=== PATIENT | male | born 1950 | race Caucasian/White ===

== ENCOUNTER 2017-02-01 11:10 | Inpatient (IN) | payer MEDICARE, OTHER ==
[2017-02-01] MEDS ORDERED: SODIUM CHLORIDE 0.9% 1,000 ML IV STA (11:23)
[2017-02-01] MEDS ORDERED: RX INFO: IV CONTRAST WAS GIVEN 1 EACH MISC MISCELLANE PRN (11:23)
--- NOTE | 2017-02-01 11:30 | ED ---
General Adult HPI - General Chief complaint: Neuro Symptoms/Deficit Stated complaint: Poss CVA Has Hx Time Seen by Provider: 02/01/17 11:16 Source: patient, family, RN notes reviewed Mode of arrival: wheelchair Limitations: altered mental status, physical limitation - History of Present Illness Initial comments: Patient is a pleasant 66-year-old male presenting to the emergency department with speech problems. Onset is not known. saw the patient around an hour ago with symptoms. Last known well was around 1 or 1:30 AM when he went to bed. Patient has expressive and receptive aphasia. Patient has difficulty understanding language and following commands however is able to understand and follows some. Patient also has some difficulty with garbled speech and inappropriate words. states left facial and left arm weakness are chronic from stroke 1 year ago. - Related Data Home Medications Medication Instructions Recorded Confirmed Verapamil HCl [Verapamil ER] 240 mg PO DAILY 09/02/15 02/01/17 glyBURIDE [Glyburide] 2.5 mg PO DAILY 09/02/15 02/01/17 Benazepril HCl 20 mg PO HS 02/01/17 02/01/17 Clopidogrel [Plavix] 75 mg PO HS 02/01/17 02/01/17 Donepezil [Aricept] 5 mg PO HS 02/01/17 02/01/17 HYDROcodone/APAP 7.5-325MG [[place] 1 tab PO BID PRN 02/01/17 02/01/17 7.5-325] Naproxen Sodium [Aleve] 440 mg PO DAILY PRN 02/01/17 02/01/17 metFORMIN HCL [Glucophage] 1,000 mg PO BID 02/01/17 02/01/17 Previous Rx's Medication Instructions Recorded Atorvastatin [Lipitor] 40 mg PO DAILY #30 tab 09/05/15 Allergies Allergy/AdvReac Type Severity Reaction Status Date / Time No Known Allergies Allergy Verified 02/01/17 12:06 Review of Systems ROS Statement: Those systems with pertinent positive or pertinent negative responses have been documented in the HPI. ROS Other: All systems not noted in ROS Statement are negative. Constitutional: Denies: fever Eyes: Denies: eye pain ENT: Denies: ear pain Respiratory: Denies: cough Cardiovascular: Denies: chest pain Endocrine: Denies: fatigue Gastrointestinal: Denies: abdominal pain Genitourinary: Denies: dysuria Musculoskeletal: Denies: back pain Skin: Denies: rash Neurological: Reports: weakness (Chronic) Past Medical History Past Medical History: Chest Pain / Angina, CVA/TIA, Diabetes Mellitus, Hyperlipidemia, Hypertension, Myocardial Infarction ([place]), Myocardial Infarction (non Q-wave), Prostate Disorder Additional Past Medical History / Comment(s): POLYPS, GOUT, STATED"I WEAR A BRACE ON LT FOOT D/T TENDON PROBLEM" 09-02-15 [address]OKE LT SIDE AFFECTED. Last Myocardial Infarction Date:: 1998? History of Any Multi-Drug Resistant Organisms: None Reported Past Surgical History: Adenoidectomy, Heart Catheterization, Tonsillectomy Additional Past Surgical History / Comment(s): COLONOSCOPY/POLYPECTOMY, BRODY CATARACTS-LENS IMPLANTS. Past Anesthesia/Blood Transfusion Reactions: No Reported Reaction Past Psychological History: No Psychological Hx Reported Smoking Status: Former smoker Past Alcohol Use History: None Reported Past Drug Use History: None Reported - Past Family History Mother Family Medical History: Diabetes Mellitus Father Additional Family Medical History / Comment(s): PARKINSONS General Exam Limitations: altered mental status, physical limitation General appearance: alert, in no apparent distress Head exam: Present: atraumatic Eye exam: Present: normal appearance, PERRL, EOMI. Absent: nystagmus ENT exam: Present: normal oropharynx Neck exam: Present: normal inspection Respiratory exam: Present: normal lung sounds bilaterally Cardiovascular Exam: Present: regular rate, normal rhythm GI/Abdominal exam: Present: soft. Absent: tenderness Extremities exam: Present: normal inspection Neurological exam: Present: alert, CN II-XII intact (Except for left facial droop) Expanded Neurological exam: Present: protecting the airway, other (Sensory exam is limited. states left facial droop is chronic and unchanged as well as left arm weakness.) Speech: Present: receptive aphasia, expressive aphasia Cranial nerves: EOM's Intact: Normal Sensory exam: Upper Extremity Light Touch: Normal, Lower Extremity Light Touch: Normal Motor strength exam: RUE: 5, LUE: 3, RLE: 5, LLE: 5 Eye Response: (4) open spontaneously Motor Response: (6) obeys commands Verbal Response: (3) inappropriate words Psychiatric exam: Present: normal affect, normal mood Skin exam: Present: normal color Course Vital Signs 02/01/17 02/01/17 02/01/17 11:12 11:20 11:35 Temperature 98.0 F Pulse Rate 62 Pulse Rate [ 64 60 Life Specialist ] Respiratory 20 18 18 Rate Blood Pressure 145/76 Blood Pressure 166/88 166/94 [Right Arm] O2 Sat by Pulse 99 98 98 Oximetry 02/01/17 02/01/17 02/01/17 11:50 12:05 12:20 Temperature Pulse Rate 58 L Pulse Rate [ 64 60 Life Specialist ] Respiratory 18 18 18 Rate Blood Pressure 158/89 Blood Pressure 142/91 143/84 [Right Arm] O2 Sat by Pulse 98 98 98 Oximetry - Reevaluation(s) Reevaluation #1: 02/01/17 11:25 Patient has a history of previous stroke with known left facial and left upper arm weakness. Patient is not a candidate for TPA secondary to last known well approximate 10 hours ago. states patient's brother after receiving TPA and would not want this anyhow. EKG Findings - EKG Comments: EKG Findings:: Normal sinus rhythm 60. MA 146. QRS 92. QT 446. QTc 446. Normal axis. Normal QRS. No acute ST change. Medical Decision Making - Medical Decision Making Patient was reevaluated and unchanged. Case was again discussed with Dr. Castano who does not feel emergent intervention is necessary. He does want MRI and neurology consult. Patient and family were updated. Case was discussed with practitioner Radha, who will admit for Dr. jauregui, covering for Dr. Sainz. - Lab Data Result diagrams: 02/01/17 11:32 02/01/17 11:32 Lab Results 02/01/17 02/01/17 02/01/17 Range/Units 11:25 11:32 11:32 WBC 8.8 (3.8-10.6) k/uL RBC 4.38 (4.30-5.90) m/uL Hgb 13.1 (13.0-17.5) gm/dL Hct 38.6 L (39.0-53.0) % MCV 88.2 (80.0-100.0) fL MCH 30.0 (25.0-35.0) pg MCHC 34.0 (31.0-37.0) g/dL RDW 14.2 (11.5-15.5) % Plt Count 242 (150-450) k/uL Neutrophils % 67 % Lymphocytes % 22 % Monocytes % 5 % Eosinophils % 5 % Basophils % 0 % Neutrophils # 5.9 (1.3-7.7) k/uL Lymphocytes # 1.9 (1.0-4.8) k/uL Monocytes # 0.5 (0-1.0) k/uL Eosinophils # 0.5 (0-0.7) k/uL Basophils # 0.0 (0-0.2) k/uL PT (9.0-12.0) sec INR (<1.2) APTT (22.0-30.0) sec Sodium (137-145) mmol/L Potassium (3.5-5.1) mmol/L Chloride (98-107) mmol/L Carbon Dioxide (22-30) mmol/L Anion Gap mmol/L BUN (9-20) mg/dL Creatinine (0.66-1.25) mg/dL Est GFR (MDRD) Af Amer (>60 ml/min/1.73 sqM) Est GFR (MDRD) Non-Af (>60 ml/min/1.73 sqM) Glucose (74-99) mg/dL POC Glucose (mg/dL) 142 H (75-99) mg/dL POC Glu Wellness Program Manager ID Bowling, Laury Calcium (8.4-10.2) mg/dL Total Bilirubin (0.2-1.3) mg/dL AST (17-59) U/L ALT (21-72) U/L Alkaline Phosphatase (38-126) U/L Total Creatine Kinase 148 (55-170) U/L CK-MB (CK-2) 2.5 H* (0.0-2.4) ng/mL CK-MB (CK-2) Rel Index 1.7 Troponin I 0.056 H* (0.000-0.034) ng/mL Total Protein (6.3-8.2) g/dL Albumin (3.5-5.0) g/dL 02/01/17 02/01/17 Range/Units 11:32 11:32 WBC (3.8-10.6) k/uL RBC (4.30-5.90) m/uL Hgb (13.0-17.5) gm/dL Hct (39.0-53.0) % MCV (80.0-100.0) fL MCH (25.0-35.0) pg MCHC (31.0-37.0) g/dL RDW (11.5-15.5) % Plt Count (150-450) k/uL Neutrophils % % Lymphocytes % % Monocytes % % Eosinophils % % Basophils % % Neutrophils # (1.3-7.7) k/uL Lymphocytes # (1.0-4.8) k/uL Monocytes # (0-1.0) k/uL Eosinophils # (0-0.7) k/uL Basophils # (0-0.2) k/uL PT 10.4 (9.0-12.0) sec INR 1.0 (<1.2) APTT 24.7 (22.0-30.0) sec Sodium 142 (137-145) mmol/L Potassium 4.4 (3.5-5.1) mmol/L Chloride 107 (98-107) mmol/L Carbon Dioxide 26 (22-30) mmol/L Anion Gap 9 mmol/L BUN 19 (9-20) mg/dL Creatinine 1.45 H (0.66-1.25) mg/dL Est GFR (MDRD) Af Amer 59 (>60 ml/min/1.73 sqM) Est GFR (MDRD) Non-Af 48 (>60 ml/min/1.73 sqM) Glucose 147 H (74-99) mg/dL POC Glucose (mg/dL) (75-99) mg/dL POC Glu Wellness Program Manager ID Calcium 9.3 (8.4-10.2) mg/dL Total Bilirubin 0.8 (0.2-1.3) mg/dL AST 26 (17-59) U/L ALT 32 (21-72) U/L Alkaline Phosphatase 144 H (38-126) U/L Total Creatine Kinase (55-170) U/L CK-MB (CK-2) (0.0-2.4) ng/mL CK-MB (CK-2) Rel Index Troponin I (0.000-0.034) ng/mL Total Protein 7.0 (6.3-8.2) g/dL Albumin 4.2 (3.5-5.0) g/dL - Radiology Data Radiology results: report reviewed (CT angiogram of the brain and neck shows persistent occluded right vertebral artery distally. Purse persistent significant stenosis right internal carotid artery.), image reviewed (Rest x- ray shows no acute process. Computed tomography scan of the brain shows old infarct, no acute process.) Disposition Clinical Impression: Cerebrovascular accident Disposition: ADMITTED IP TO THIS HOSP Referrals: Miroslava Sainz DO [Primary Care Provider] - 1-2 days Decision Time: 12:58
[2017-02-01 11:40] LABS: Glucose,Whole Blood 142 mg/dL (75-99)
[2017-02-01 11:46] LABS: Basophils % (A) 0 %; CH 31.1; CHCM 35.4; Eosinophils # (A) 0.5 k/uL (0-0.7); Eosinophils % (A) 5 %; HCT 38.6 % (39.0-53.0); HDW 2.58; HGB 13.1 gm/dL (13.0-17.5); Luc # (Auto) 0.09; Luc % (Auto) 1; Lymphocytes # (A) 1.9 k/uL (1.0-4.8); Lymphocytes % (A) 22 %; MCV 88.2 fL (80.0-100.0); Mean Platelet Volume 7.2; Monocytes # (A) 0.5 k/uL (0-1.0); Monocytes % (A) 5 %; Neutrophils # (A) 5.9 k/uL (1.3-7.7); Neutrophils % (A) 67 %; RBC 4.38 m/uL (4.30-5.90); RDW 14.2 % (11.5-15.5); WBC 8.8 k/uL (3.8-10.6); WBC (Perox) 8.96
[2017-02-01 11:51] LABS: Partial Thromboplastin Time 24.7 sec (22.0-30.0); Prothrombin Time 10.4 sec (9.0-12.0)
[2017-02-01 11:53] LABS: Calcium 9.3 mg/dL (8.4-10.2); Potassium 4.4 mmol/L (3.5-5.1); Total Bilirubin 0.8 mg/dL (0.2-1.3)
--- NOTE | 2017-02-01 12:18 | CT ---
EXAMINATION TYPE: CT brain wo con DATE OF EXAM: 02/01/2017 HISTORY: altered mental status. CT DLP: 1064.30 mGycm. Automated Exposure Control for Dose Reduction was Utilized. TECHNIQUE: CT scan of the head is performed without contrast. COMPARISON: CT brain September 08, 2015. MRI brain September 02, 2015. FINDINGS: There is no acute intracranial hemorrhage or midline shift identified. There is diffuse v entricular and sulcal prominence consistent with diffuse age-related cerebral atrophy. There is low- attenuation in the periventricular white matter consistent with chronic small vessel ischemic change. Areas of encephalomalacia right frontal region there are axial image 27 and posterior superior right frontal region near image 35 extending through 42 are redemonstrated. Ex vacuo dilatation of right-s ided ventricular system is redemonstrated. The globes are intact and the visualized sinuses are clear . Patchy soft tissue density bilateral external auditory canals is felt to reflect cerumen. IMPRESSION: No acute intracranial hemorrhage or midline shift. There is mild to moderate diffuse ag e-related cerebral atrophy and chronic small vessel ischemic change as well as old right-sided infarc t all redemonstrated. No significant change from prior CT is seen. If clinical concern for acute stroke persists further investigation with MRI study may be warranted.
--- NOTE | 2017-02-01 12:20 | XR ---
EXAMINATION TYPE: XR chest 2V DATE OF EXAM: 02/01/2017 COMPARISON: 09/06/2015 HISTORY: 66-year-old male confusion, altered mental status TECHNIQUE: Frontal and lateral views FINDINGS: The heart is upper limits of normal in size. Aorta and pulmonary vasculature within normal limits. Mi ld interstitial prominence as a chronic appearance. No consolidation or pleural effusion. IMPRESSION: No acute cardiopulmonary process.
[2017-02-01 12:26] LABS: Creatine Kinase MB 2.5 ng/mL (0.0-2.4); Troponin I 0.056 ng/mL (0.000-0.034)
--- NOTE | 2017-02-01 12:58 | CT ---
EXAMINATION TYPE: CT angio head neck DATE OF EXAM: 02/01/2017 HISTORY: Neuro Deficits. altered mental status. COMPARISON: CTA and MRA head and neck September 02, 2015 CT DLP: 395.90 mGycm. Automated Exposure Control for Dose Reduction was Utilized. TECHNIQUE: CTA scan of the neck is performed with IV Contrast, patient injected with 65 mL of Omnipa que 350, axial images are obtained, coronal and sagittal reformatted images are reviewed. Three-D rec onstructed images are created on an independent workstation and reviewed. FINDINGS: Carotid/Vascular Structures: There is mild eccentric noncalcified plaque in aortic arch. There is nor mal three-vessel origin from aortic arch. The right common carotid artery shows normal origin from th e right brachiocephalic artery. There is redemonstration of severe noncalcified eccentric plaque at r ight carotid bulb seen best on sagittal image 15 along posterior margin causing severe stenosis at or igin of right internal carotid artery similar to prior MRI. I get residual luminal diameter of 4.5 x 1.9 mm anteriorly on raw data images. Computer says there is narrowing up to 2.2 mm in diameter. Chelo ve some poststenotic dilatation is seen. [place] lumen reexpands to 7.6 x 7.0 mm. Remainder of right i nternal carotid artery shows no significant plaque or stenosis. Right external carotid artery is roach nt without significant plaque or stenosis. Left common carotid artery shows moderate mixed plaque at carotid bulb extending into proximal spring intern al carotid artery. No significant stenosis is felt present. Remainder left internal carotid artery sh ows no significant plaque or stenosis. There is patent external carotid artery without significant pl aque or stenosis. There is patent dominant left vertebral artery. Right vertebral artery appears occluded or small sonia lilly throughout its mid to distal course. Basilar artery is slightly tortuous similar to prior. No ane urysmal change or new significant stenosis is seen. Other: There is redemonstration of areas of encephalomalacia right frontal lobe MCA distribution. Fairly moderate spurring and disc space narrowing C3-C4, C5-C6, and C6-C7 levels is redemonstrated. IMPRESSION: 1. Persistent occluded nondominant right vertebral artery distally redemonstrated. 2. Persistent significant stenosis right internal carotid artery, I calculated degree of stenosis or narrowing 85% as detailed above on MRA was felt greater than 90%. 3. No significant new focal stenosis or aneurysmal change is identified.
[2017-02-01] MEDS ORDERED: SODIUM CHLORIDE 0.9% 1,000 ML IV SCH (13:00)
[2017-02-01] MEDS ORDERED: ASPIRIN 325 MG TAB PO STA (13:00)
--- NOTE | 2017-02-01 13:06 | ED ---
Medical Decision Making - Lab Data Result diagrams: 02/01/17 11:32 02/01/17 11:32 Lab Results 02/01/17 02/01/17 02/01/17 Range/Units 11:25 11:32 11:32 WBC 8.8 (3.8-10.6) k/uL RBC 4.38 (4.30-5.90) m/uL Hgb 13.1 (13.0-17.5) gm/dL Hct 38.6 L (39.0-53.0) % MCV 88.2 (80.0-100.0) fL MCH 30.0 (25.0-35.0) pg MCHC 34.0 (31.0-37.0) g/dL RDW 14.2 (11.5-15.5) % Plt Count 242 (150-450) k/uL Neutrophils % 67 % Lymphocytes % 22 % Monocytes % 5 % Eosinophils % 5 % Basophils % 0 % Neutrophils # 5.9 (1.3-7.7) k/uL Lymphocytes # 1.9 (1.0-4.8) k/uL Monocytes # 0.5 (0-1.0) k/uL Eosinophils # 0.5 (0-0.7) k/uL Basophils # 0.0 (0-0.2) k/uL PT (9.0-12.0) sec INR (<1.2) APTT (22.0-30.0) sec Sodium (137-145) mmol/L Potassium (3.5-5.1) mmol/L Chloride (98-107) mmol/L Carbon Dioxide (22-30) mmol/L Anion Gap mmol/L BUN (9-20) mg/dL Creatinine (0.66-1.25) mg/dL Est GFR (MDRD) Af Amer (>60 ml/min/1.73 sqM) Est GFR (MDRD) Non-Af (>60 ml/min/1.73 sqM) Glucose (74-99) mg/dL POC Glucose (mg/dL) 142 H (75-99) mg/dL POC Glu Jig And Fixture Builder ID Bowling, Laury Calcium (8.4-10.2) mg/dL Total Bilirubin (0.2-1.3) mg/dL AST (17-59) U/L ALT (21-72) U/L Alkaline Phosphatase (38-126) U/L Total Creatine Kinase 148 (55-170) U/L CK-MB (CK-2) 2.5 H* (0.0-2.4) ng/mL CK-MB (CK-2) Rel Index 1.7 Troponin I 0.056 H* (0.000-0.034) ng/mL Total Protein (6.3-8.2) g/dL Albumin (3.5-5.0) g/dL 02/01/17 02/01/17 Range/Units 11:32 11:32 WBC (3.8-10.6) k/uL RBC (4.30-5.90) m/uL Hgb (13.0-17.5) gm/dL Hct (39.0-53.0) % MCV (80.0-100.0) fL MCH (25.0-35.0) pg MCHC (31.0-37.0) g/dL RDW (11.5-15.5) % Plt Count (150-450) k/uL Neutrophils % % Lymphocytes % % Monocytes % % Eosinophils % % Basophils % % Neutrophils # (1.3-7.7) k/uL Lymphocytes # (1.0-4.8) k/uL Monocytes # (0-1.0) k/uL Eosinophils # (0-0.7) k/uL Basophils # (0-0.2) k/uL PT 10.4 (9.0-12.0) sec INR 1.0 (<1.2) APTT 24.7 (22.0-30.0) sec Sodium 142 (137-145) mmol/L Potassium 4.4 (3.5-5.1) mmol/L Chloride 107 (98-107) mmol/L Carbon Dioxide 26 (22-30) mmol/L Anion Gap 9 mmol/L BUN 19 (9-20) mg/dL Creatinine 1.45 H (0.66-1.25) mg/dL Est GFR (MDRD) Af Amer 59 (>60 ml/min/1.73 sqM) Est GFR (MDRD) Non-Af 48 (>60 ml/min/1.73 sqM) Glucose 147 H (74-99) mg/dL POC Glucose (mg/dL) (75-99) mg/dL POC Glu Jig And Fixture Builder ID Calcium 9.3 (8.4-10.2) mg/dL Total Bilirubin 0.8 (0.2-1.3) mg/dL AST 26 (17-59) U/L ALT 32 (21-72) U/L Alkaline Phosphatase 144 H (38-126) U/L Total Creatine Kinase (55-170) U/L CK-MB (CK-2) (0.0-2.4) ng/mL CK-MB (CK-2) Rel Index Troponin I (0.000-0.034) ng/mL Total Protein 7.0 (6.3-8.2) g/dL Albumin 4.2 (3.5-5.0) g/dL Disposition Clinical Impression: Cerebrovascular accident Disposition: ADMITTED IP TO THIS HOSP Referrals: Miroslava Sainz DO [Primary Care Provider] - 1-2 days Isaiah Castano MD [STAFF PHYSICIAN] - 1-2 days
--- NOTE | 2017-02-01 14:13 | MR ---
EXAMINATION TYPE: MR brain wo con DATE OF EXAM: 02/01/2017 COMPARISON: Prior MRI brain September 02, 2015. CT brain earlier today. HISTORY: Speech loss, CVA per order. TECHNIQUE: Multiplanar, multisequence imaging of the brain and brainstem is performed without IV cont rast. FINDINGS: Diffusion weighted images demonstrate no evidence of a recent infarct or other diffusion abnormality. There is no worrisome extra-axial fluid collection. There is ventricular and sulcal prominence consis tent with diffuse cerebral atrophy. Areas of old infarct right frontal region are more prominent than prior MRI likely reflect interval infarct progression from MRI but still chronic in age. Some foci o f T2 hyperintensity in the periventricular white matter are redemonstrated. Midline structures demonstrate normal morphology. The craniocervical junction appears within normal limits. Normal vascular flow voids are present. The visualized sinuses are clear and the globes are i ntact. IMPRESSION: No evidence of a recent infarct. There is mild to moderate diffuse cerebral atrophy and m ild chronic small vessel ischemic change with more prominent right-sided encephalomalacia since August 2015 MRI in the right MCA distribution.
--- NOTE | 2017-02-01 16:18 | US ---
EXAMINATION TYPE: US carotid duplex BILAT DATE OF EXAM: 02/01/2017 COMPARISON: CTA neck earlier today CLINICAL HISTORY: Patient with acute stroke.. EXAM MEASUREMENTS: RIGHT: Peak Systolic Velocity (PSV) cm/sec ----- Right CCA: 53.8 ----- Right ICA: 209.4 ----- Right ECA: 76.4 ICA/CCA ratio: 3.9 RIGHT: End Diastole cm/sec ----- Right CCA: 10.1 ----- Right ICA: 50.5 ----- Right ECA: 5.5 LEFT: Peak Systolic Velocity (PSV) cm/sec ----- Left CCA: 80.7 ----- Left ICA: 69.9 ----- Left ECA: 89.4 ICA/CCA ratio: 0.9 LEFT: End Diastole cm/sec ----- Left CCA: 20.2 ----- Left ICA: 15.9 ----- Left ECA: 12.4 VERTEBRALS (direction of flow): Right Vertebral: Antegrade visualized proximal portion Left Vertebral: Antegrade Severe plaque seen on right with elevated velocity in right ICA, left shows mild plaque with no veloc ity elevations. Severe plaque right carotid bulb is redemonstrated. Increased peak systolic velocity, end-diastolic v elocity, and abnormal ratio is present. IMPRESSION: Severe plaque right carotid bulb with stenosis estimated approaching 69% by ultrasound , CTA and MRA are more sensitive and identified more prominent stenosis approaching 85-90%.
[2017-02-01 16:30] LABS: Glucose,Whole Blood 143 mg/dL (75-99)
[2017-02-01] MEDS ORDERED: HYDROcodone/APAP 7.5-325MG 1 EACH TAB PO PRN (18:50)
--- NOTE | 2017-02-01 19:35 | P.CNNES ---
History of Present Illness Consult date: 02/01/17 Reason for Consult: Patient being evaluated for acute stroke and critical ICA stenosis. History of Present Illness: This patient is a 66-year-old right-handed white male who states he was in his usual state of health until early this morning. According to the patient he got up as usual in the morning and was out taking his thoughts for a walk and feeding them. She apparently felt fine when he went out to take care of the dogs however when he returned to his home and was sitting at the kitchen table he noticed that he was having difficulty getting his words out. He stated that his words were very hard to pronounce and was very garbled speech which was very worrisome. He had word finding difficulties as well. His also came to the table and noticed right away that he was having a major clinical finding of expressive aphasia. She immediately brought him to the emergency room at [facility] ER for further evaluation. Apparently ER physician Dr. Bishop noted that his symptoms likely started 10 hours prior to his arrival. He was not deemed to be a TPA candidate at this time. The patient was sent for an immediate computed tomography scan of the brain. A CAT scan of the brain revealed evidence of a old right hemispheric stroke. There was mild to moderate diffuse age-related atrophy noted. No evidence of acute stroke or hemorrhage was noted. The patient was also sent for a CTA angiogram of the head and neck. The results of this study revealed no aneurysm or significant stenosis at the level of the [place] of [place]. The internal carotid arteries however revealed evidence of a right vertebral artery occlusion. There was persistent and significant stenosis noted in the right internal carotid artery of greater than 90%. No significant focal stenosis or aneurysmal change was identified. The patient has a history of having suffered a stroke in August 2015. At that time his carotid artery stenosis was noted to be 80%. It was also isolated to the right internal carotid artery. He was seen at that time by Dr. Frank vascular surgeon who did not feel he needed surgery at the time. Patient states he did have a follow-up with the vascular surgeon but again was not recommended any surgical intervention. Due to his acute presentation to the ER a code stroke was initiated. The patient was evaluated by Dr. Romero neuro interventionalist at [facility]. His NIH stroke scale was noted in the ER to be 9.0. This was documented at 11 AM on 02/01/2017. The patient was evaluated via there is stroke robotic by Dr. Castano who did not feel the patient require any emergent treatment. He was advised admission to the hospital with a neurology consultation as well as a MRI of the brain. MRI of the brain was completed this afternoon and revealed no evidence of recent stroke. There was mild to moderate degree of cerebral atrophy noted. Right- sided encephalomalacia was noted and was unchanged from August 2015. The patient has noted improvement with his expressive aphasia since admission to the hospital. He feels there is about 40% improvement. We are recommending the patient should be transferred into the intensive care unit due to the critical stenosis of the right internal carotid artery. We will obtain a stat consultation with Dr. Frank a vascular surgery for further evaluation. He will require frequent neuro checks every 1 hour in the ICU setting at least for the next 12 [address] We have informed Dr. Leyva and his physician offset press assistant about this patient's neurological findings. They're in full agreement to transfer this patient into the ICU. This patient's clinical history suggesting recurrent TIA in this patient with critical stenosis of the right internal carotid artery. We will await Dr. Frank's evaluation and recommendations regarding this patient's overall condition. We will continue close neurological follow this patient in the intensive care unit. His overall prognosis at this time remains very guarded. We did attempt to contact the patient's over the phone but this was unsuccessful. We will try to update her as soon as phone contact can be made. We have informed the patient of these current neurological findings. We will continue close neuro checks of this patient in the ICU setting. His overall prognosis at this time remains very guarded. Review of Systems Constitutional: Denies chills, Denies fever Eyes: denies blurred vision, denies pain Ears, nose, mouth and throat: Denies headache, Denies sore throat Cardiovascular: Denies chest pain, Denies shortness of breath Respiratory: Denies cough Gastrointestinal: Denies abdominal pain, Denies diarrhea, Denies nausea, Denies vomiting Musculoskeletal: Denies myalgias Integumentary: Denies pruritus, Denies rash Neurological: Reports aphasia, Reports change in mentation, Reports motor disturbance, Denies numbness, Denies weakness Psychiatric: Denies anxiety, Denies depression Endocrine: Denies fatigue, Denies weight change Past Medical History Past Medical History: Chest Pain / Angina, CVA/TIA, Diabetes Mellitus, Hyperlipidemia, Hypertension, Myocardial Infarction ([place]), Prostate Disorder Additional Past Medical History / Comment(s): 09/02/15 CVA with L face/L arm/L leg weakness, R caratid artery disease, NIDDM type II, gout, colon polyps-benign , BPH, L foot tendon injury, spouse states pt had a MA around 1987 due to alcohol and drug abuse-has not used either since then. Last Myocardial Infarction Date:: 1997 History of Any Multi-Drug Resistant Organisms: None Reported Past Surgical History: Adenoidectomy, Heart Catheterization, Tonsillectomy Additional Past Surgical History / Comment(s): COLONOSCOPY/POLYPECTOMY, BRODY CATARACTS-LENS IMPLANTS. Past Anesthesia/Blood Transfusion Reactions: No Reported Reaction Past Psychological History: No Psychological Hx Reported Additional Psychological History / Comment(s): Pt resides with his spouse. He uses no assistive device. [place] His spouse manages his medications. His spouse is recovering from R shoulder surgery and cannot lift weight with that arm at this time. Spouse states that pt gets frustrated/angry at times since his CVA. She and family have asked him to go get some help for this but he has refused. Smoking Status: Former smoker Past Alcohol Use History: None Reported, Abuse Additional Past Alcohol Use History / Comment(s): SMOKED FOR 15 YEARS,QUIT 1997. Spouse states pt used to abuse alcohol but has not drank since 1987. Past Drug Use History: None Reported Additional Drug Use History / Comment(s): Spouse states pt used to abuse "drugs. " He has not used any street drugs since 1987. - Past Family History Mother Family Medical History: Diabetes Mellitus Father Family Medical History: Musculoskeletal Disorder, Neurologic Disorder Additional Family Medical History / Comment(s): PARKINSONS Medications and Allergies Home Medications Medication Instructions Recorded Confirmed Type Verapamil HCl [Verapamil ER] 240 mg PO DAILY 09/02/15 02/01/17 History glyBURIDE [Glyburide] 2.5 mg PO DAILY 09/02/15 02/01/17 History Atorvastatin [Lipitor] 40 mg PO DAILY #30 tab 09/05/15 02/01/17 Rx Benazepril HCl 20 mg PO HS 02/01/17 02/01/17 History Clopidogrel [Plavix] 75 mg PO HS 02/01/17 02/01/17 History Donepezil [Aricept] 5 mg PO HS 02/01/17 02/01/17 History HYDROcodone/APAP 7.5-325MG [[place] 1 tab PO BID PRN 02/01/17 02/01/17 History 7.5-325] Naproxen Sodium [Aleve] 440 mg PO DAILY PRN 02/01/17 02/01/17 History metFORMIN HCL [Glucophage] 1,000 mg PO BID 02/01/17 02/01/17 History Allergies Allergy/AdvReac Type Severity Reaction Status Date / Time No Known Allergies Allergy Verified 02/01/17 12:06 Physical Examination - Vital Signs Vital Signs: Vital Signs Temp Pulse Pulse Resp BP BP Pulse Ox 02/01/17 13:10 59 L 18 165/83 97 02/01/17 12:20 58 L 18 158/89 98 02/01/17 12:05 60 18 143/84 98 02/01/17 11:50 64 18 142/91 98 02/01/17 11:35 60 18 166/94 98 02/01/17 11:20 64 18 166/88 98 02/01/17 11:12 98.0 F 62 20 145/76 99 Intake and Output 01/31/17 02/01/17 02/01/17 22:59 06:59 14:59 Other: Weight 102.058 kg Patient Weight 02/02/17 06:59 Weight 102.058 kg - Constitutional General appearance: average body habitus, cooperative - EENT EENT: PERRL, mucous membranes moist - Respiratory Respiratory: lungs clear, normal breath sounds - Cardiovascular Cardiovascular: regular rate, normal S1, normal S2 Extremities: no peripheral edema bilaterally - Gastrointestinal Gastrointestinal: normoactive bowel sounds - Integumentary Integumentary: normal - Neurologic Cranial nerve examination: PERRL, EOMI, VFF, V1/V2/V3 grossly intact, tongue midline, intact gag reflex, intact corneal reflex, facial droop (Patient has a left upper motor neuron facial droop.), normal palatal elevation Speech examination: motor aphasia Sensorimotor examination: intact Motor examination - right side: 5/5: biceps, triceps, wrist flexion, wrist extension, personal computer network engineer, hip flexors, knee extensors, dorsiflexion, toe extension (EHL) , plantarflexion Motor examination - left side: 4/5: biceps, triceps, wrist flexion, wrist extension, personal computer network engineer, hip flexors, knee extensors, dorsiflexion, toe extension (EHL) , plantarflexion Detailed sensory examination: intact Reflex and gait examination: intact Reflexes: 1+: ankle, bicep, knee, tricep - Musculoskeletal Musculoskeletal: no pain - Psychiatric Psychiatric: mood/affect appropriate, cooperative Results - Laboratory Findings CBC and BMP: 02/01/17 11:32 02/01/17 11:32 Abnormal Lab Findings: Abnormal Labs 02/01/17 02/01/17 02/01/17 11:25 11:32 11:32 Hct 38.6 L Creatinine Glucose POC Glucose (mg/dL) 142 H Alkaline Phosphatase CK-MB (CK-2) 2.5 H* Troponin I 0.056 H* 02/01/17 11:32 Hct Creatinine 1.45 H Glucose 147 H POC Glucose (mg/dL) Alkaline Phosphatase 144 H CK-MB (CK-2) Troponin I Assessment and Plan (1) History of recurrent TIAs Status: Acute Code(s): Z86.73 - PRSNL HX OF TIA (TIA), AND CEREB INFRC W/O RESID DEFICITS (2) Carotid artery stenosis with cerebral infarction over 8 weeks ago Status: Acute Code(s): Z86.73 - PRSNL HX OF TIA (TIA), AND CEREB INFRC W/O RESID DEFICITS (3) Diabetes mellitus Status: Acute Code(s): E11.9 - TYPE 2 DIABETES MELLITUS WITHOUT COMPLICATIONS (4) History of stroke Status: Acute Code(s): Z86.73 - PRSNL HX OF TIA (TIA), AND CEREB INFRC W/O RESID DEFICITS Plan: This patient is a 66-year-old right-handed white male who was in his usual state of health until early this morning. Patient awoke and was taking his dogs out for walking and feeding them when he noticed sudden onset of difficulty with his speech. He returned to the house and was sitting at the kitchen table when he found that he could not get his words out. He was having word finding difficulties as well as clear evidence of expressive aphasia. His came out to the kitchen and found him unable to communicate properly at all. She was very concerned as he does have a history of previous stroke in August 2015. She immediately brought him to the emergency room at [facility] for further evaluation. Patient was seen in the ER by Dr. Bishop. A computed tomography scan of the brain as well as a CTA angiogram was ordered. CAT scan of the brain revealed evidence of an old right hemispheric stroke. No other acute findings were noted. CTA angiogram revealed no aneurysmal change or significant stenosis at the level of [place]. Carotid artery angiogram revealed occlusion of the right vertebral artery which was noted on previous study. There is also evidence of significant right internal carotid artery stenosis estimated to be greater than 90%. The neuro interventional last Dr. Castano was contacted via the stroke robot. His NIH stroke scale was noted by Dr. Bishop was 9.0. Onset of his symptoms however were noted in the ER as being over [address] Castano reviewed all of his neuroimaging studies as well as his NIH stroke scale. He deemed him not to be a candidate for any TPA or other intervention and was advised admission to the hospital. A neurology consultation was requested as well as MRI of the brain. Patient did undergo MRI of the brain today which revealed no evidence of acute stroke. Was mild to moderate degree of cerebral atrophy and small vessel ischemic changes. Evidence of an old area of infarction involving the right hemisphere. Neurology was consulted for further evaluation. Given his critical stenosis of the right ICA of greater than 90% it was recommended the patient be transferred into the intensive care unit. They're requesting a stat consultation with Dr. Frank to evaluate the CTA angiogram results and we'll await his further recommendations. Patient should be put on neuro checks every one hour for the next 12 hours in the ICU. We have updated the patient of his overall neurological status at this time. He has noted about 40% improvement in his expressive aphasia since admission to the hospital. We will continue close neurological checks of this patient in the ICU. His overall prognosis at this time remains very guarded. We will continue close neurological follow-up of this patient in the ICU setting. Time with Patient: Greater than 30
[2017-02-01 19:49] LABS: Glucose,Whole Blood 135 mg/dL (75-99)
[2017-02-01 19:53] VITALS: TEMP 98
[2017-02-01] MEDS ORDERED: DONEPEZIL 5 MG TAB PO SCH (21:00)
[2017-02-01] MEDS ORDERED: LISINOPRIL 20 MG TAB PO SCH (21:00)
[2017-02-01] MEDS ORDERED: CLOPIDOGREL 75 MG TAB PO SCH (21:00)
--- NOTE | 2017-02-01 22:30 | P.HPIM ---
History of Present Illness H&P Date: 02/01/17 Chief Complaint: Difficulty speaking History of presenting complaint: This is a 66-year-old patient of Dr. saab. Patient chronic stable medical conditions include hypertension, diabetes, coronary artery disease, hyperlipidemia. The patient has a known right multiple artery stenosis and a right internal carotid artery stenosis. Patient was here in August of this year. Patient that time had a complete flaccidity of the left arm, speech is affected. Patient was then seen by neurologist Dr. Antonio and the vascular surgeon Dr. Alvarado. Because it was felt to be completed stroke no intervention was done at that time. Since then patient's weakness and left arm is greatly improved and he has a subtle weakness and left upper arm and left leg. Today around 11 AM patient noticed that he is having trouble finding words and came to the hospital. There was no increased weakness on the left side. No change in vision. Robotics stroke team was contacted and they said to manage the patient locally. The later Dr. Han Dumont of neurology saw the patient will continue to the ICU. Dr. Alvarado from vascular surgery came down. And thought that patient should be transferred to a higher center of care. In the meantime patient's speech is improved about 50% on more with occasionally finding difficulty finding words. Initial blood pressure is a wart on his systolics under systolic blood pressures running in the 160s. GEN.: Tired EYES: None HEENT: None NECK: None RESPIRATORY: None CARDIOVASCULAR: None GASTROINTESTINAL: None GENITOURINARY: None MUSCULOSKELETAL: None LYMPHATICS: None HEMATOLOGICAL: None PSYCHIATRY: None NEUROLOGICAL: As above Past medical history: Right internal carotid artery stenosis 80%, right nondominant vertebral artery complete occlusion, stroke with residual left-sided weakness, hypertension, diabetes, coronary artery disease, hyperlipidemia, BPH Past surgical history: Adenoidectomy, cardiac catheterization, tonsillectomy, bilateral cataract lens implant Home medications: Reviewed in the electronic records, that includes Plavix and Lipitor ALLERGIES: None Social history: Patient smoked for 15 years. 1987. Was drinking heavy alcohol till 1987. Did recreational drug still . . Family history: Diabetes mellitus, Parkinson's VITAL SIGNS: 98, 62, 20, 145/76, 99% room air GENERAL: Average built, probably up, comfortable. EYES: Pupils equal. Conjunctiva normal. HEENT: External appearance of nose and ears normal, oral cavity grossly normal. NECK: JVD not raised; masses not palpable. HEART: First and second heart sounds are normal; no edema. LUNGS: Respiratory rate normal; clear to auscultation. ABDOMEN: Soft, nontender, liver spleen not palpable, no masses palpable. LYMPHATICS: No lymph nodes palpable in the axilla and neck. PSYCH: Alert and oriented x3; mood and affect normal. NEUROLOGICAL: Facial asymmetry present sometimes difficulty finding words. Power on the left side is 4/5. Bilateral sensation grossly preserved Investigations: Carotid Doppler-severe prolonged right carotid bulb. MRI-no evidence of recent infarct. Mild to moderate diffuse cerebral atrophy and prominent right-sided encephalomalacia in the right MCA distribution EKG-normal sinus rhythm with nonspecific changes CT edge of the brain-persistent occluded nondominant right vertebral artery, artery demonstrated Persistent symptoms stenosis right internal carotid artery on the MRA felt to be greater than 90%. Assessment: -Acute stroke in the right middle cerebral artery area primarily affecting the speech area, with about 50% improvement since initial presentation this morning , likely ischemic in nature in a right-handed patient -Left hemiparesis power 4/5 from an old stroke -significant right internal carotid artery stenosis suspected be more than 90% per MRA -Chronically occluded nondominant right vertebral artery -Essential hypertension uncontrolled on presentation -Diabetes as well as type II on oral hypoglycemic -Coronary artery disease with a prior history of NV -Hyperlipidemia -BPH Plan: Patient with ICU by Dr. Agustin. Dr. Alvarado from vascular surgery was called. Patient's audio antiplatelet agent and Lipitor. Was on those of Lipitor to be increased to 80 mg. Home medications are being resumed. Neurochecks are to be carried out. I spoke to the patient is agreeable to move to [facility] and stroke unit.-As recommended by both neurology and Dr. Alvarado Past Medical History Past Medical History: Chest Pain / Angina, CVA/TIA, Diabetes Mellitus, Hyperlipidemia, Hypertension, Myocardial Infarction (NV), Prostate Disorder Additional Past Medical History / Comment(s): 09/02/15 CVA with L face/L arm/L leg weakness, R caratid artery disease, NIDDM type II, gout, colon polyps-benign , BPH, L foot tendon injury, spouse states pt had a NV around 1987 due to alcohol and drug abuse-has not used either since then. Last Myocardial Infarction Date:: 1997 History of Any Multi-Drug Resistant Organisms: None Reported Past Surgical History: Adenoidectomy, Heart Catheterization, Tonsillectomy Additional Past Surgical History / Comment(s): COLONOSCOPY/POLYPECTOMY, BRODY CATARACTS-LENS IMPLANTS. Past Anesthesia/Blood Transfusion Reactions: No Reported Reaction Past Psychological History: No Psychological Hx Reported Additional Psychological History / Comment(s): Pt resides with his spouse. He uses no assistive device. He drives alittle. His spouse manages his medications. His spouse is recovering from R shoulder surgery and cannot lift weight with that arm at this time. Spouse states that pt gets frustrated/angry at times since his CVA. She and family have asked him to go get some help for this but he has refused. Smoking Status: Former smoker Past Alcohol Use History: None Reported, Abuse Additional Past Alcohol Use History / Comment(s): SMOKED FOR 15 YEARS,QUIT 1997. Spouse states pt used to abuse alcohol but has not drank since 1987. Past Drug Use History: None Reported Additional Drug Use History / Comment(s): Spouse states pt used to abuse "drugs. " He has not used any street drugs since 1987. - Past Family History Mother Family Medical History: Diabetes Mellitus Father Family Medical History: Musculoskeletal Disorder, Neurologic Disorder Additional Family Medical History / Comment(s): PARKINSONS Medications and Allergies Home Medications Medication Instructions Recorded Confirmed Type Verapamil HCl [Verapamil ER] 240 mg PO DAILY 09/02/15 02/01/17 History glyBURIDE [Glyburide] 2.5 mg PO DAILY 09/02/15 02/01/17 History Atorvastatin [Lipitor] 40 mg PO DAILY #30 tab 09/05/15 02/01/17 Rx Benazepril HCl 20 mg PO HS 02/01/17 02/01/17 History Clopidogrel [Plavix] 75 mg PO HS 02/01/17 02/01/17 History Donepezil [Aricept] 5 mg PO HS 02/01/17 02/01/17 History HYDROcodone/APAP 7.5-325MG [[place] 1 tab PO BID PRN 02/01/17 02/01/17 History 7.5-325] Naproxen Sodium [Aleve] 440 mg PO DAILY PRN 02/01/17 02/01/17 History metFORMIN HCL [Glucophage] 1,000 mg PO BID 02/01/17 02/01/17 History Allergies Allergy/AdvReac Type Severity Reaction Status Date / Time No Known Allergies Allergy Verified 02/01/17 12:06 Results CBC & Chem 7: 02/01/17 11:32 02/01/17 11:32 Thrombosis Risk Factor Assmnt - Choose All That Apply Thrombosis Risk Factor Assessment Level: High Risk
--- NOTE | 2017-02-01 22:36 | P.DS ---
Providers Date of admission: 02/01/17 13:00 Expected date of discharge: 02/01/17 Attending physician: Aristides Leyva Consults: 02/01/17 13:01 Consult Physician Routine Consulting Provider: Millie Roberts Consult Reason/Comments: cva Do you want consulting provider notified?: Yes 02/01/17 19:04 Consult Physician Routine Consulting Provider: Ender Sparks Consult Reason/Comments: ICU MANAGEMENT Do you want consulting provider notified?: Yes 02/01/17 19:30 Consult Physician Stat Consulting Provider: Can Frank Consult Reason/Comments: Critical right carotid artery stenosis. Do you want consulting provider notified?: Yes Primary care physician: Miroslava Saab Hospital Course: Hospital course. This is a 66-year-old patient of Dr. saab. Patient chronic stable medical conditions include hypertension, diabetes, coronary artery disease, hyperlipidemia. The patient has a known right multiple artery stenosis and a right internal carotid artery stenosis. Patient was here in August of this year. Patient that time had a complete flaccidity of the left arm, speech is affected. Patient was then seen by neurologist Dr. Antonio and the vascular surgeon Dr. Alvarado. Because it was felt to be completed stroke no intervention was done at that time. Since then patient's weakness and left arm is greatly improved and he has a subtle weakness and left upper arm and left leg. Today around 11 AM patient noticed that he is having trouble finding words and came to the hospital. There was no increased weakness on the left side. No change in vision. [employer] stroke team was contacted and they said to manage the patient locally. The later Dr. Han Dumont of neurology saw the patient will continue to the ICU. Dr. Alvarado from vascular surgery came down. And thought that patient should be transferred to a higher center of care. In the meantime patient's speech is improved about 50% on more with occasionally finding difficulty finding words. Initial blood pressure is a wart on his systolics under systolic blood pressures running in the 160s. C D'Richie showing greater than 90% right ICA stenosis. Patient is being transferred for a higher level of care I talked with Dr. Messer at the [facility]. He is accepted the patient. The doctor the patient is okay with the transfer understanding what's going on. On examination: Neurological-, Power on the left side 4/5, speech slow with some missing words this is new. Disposition: [facility], [facility] Condition at discharge: Stable for discharge/transfer Plan - Discharge Summary New Discharge Prescriptions: New Aspirin 325 mg PO DAILY tab Enoxaparin [Lovenox] 40 mg SQ DAILY syr Continue Verapamil HCl [Verapamil ER] 240 mg PO DAILY glyBURIDE [Glyburide] 2.5 mg PO DAILY Atorvastatin [Lipitor] 40 mg PO DAILY #30 tab HYDROcodone/APAP 7.5-325MG [Flatgap 7.5-325] 1 tab PO BID PRN PRN Reason: Pain Benazepril HCl 20 mg PO HS Donepezil [Aricept] 5 mg PO HS metFORMIN HCL [Glucophage] 1,000 mg PO BID Clopidogrel [Plavix] 75 mg PO HS Discontinued Naproxen Sodium [Aleve] 440 mg PO DAILY PRN PRN Reason: Pain Discharge Medication List Verapamil HCl [Verapamil ER] 240 mg PO DAILY 09/02/15 [History] glyBURIDE [Glyburide] 2.5 mg PO DAILY 09/02/15 [History] Atorvastatin [Lipitor] 40 mg PO DAILY #30 tab 09/05/15 [Rx] Aspirin 325 mg PO DAILY tab 02/01/17 [Rx] Benazepril HCl 20 mg PO HS 02/01/17 [History] Clopidogrel [Plavix] 75 mg PO HS 02/01/17 [History] Donepezil [Aricept] 5 mg PO HS 02/01/17 [History] Enoxaparin [Lovenox] 40 mg SQ DAILY syr 02/01/17 [Rx] HYDROcodone/APAP 7.5-325MG [Flatgap 7.5-325] 1 tab PO BID PRN 02/01/17 [History] metFORMIN HCL [Glucophage] 1,000 mg PO BID 02/01/17 [History] Discharge Disposition: OTHER INSTITUTION NOT DEFINED
[2017-02-01 23:18] VITALS: BP 190/106; RESP 43
[2017-02-01 23:28] VITALS: PULSE 87
[2017-02-02 03:10] LABS: Cholesterol 152 mg/dL (<200); HDL Cholesterol 39 mg/dL (40-60)
--- NOTE | 2017-02-02 05:58 | EEG ---
ELECTROENCEPHALOGRAM REPORT DATE OF SERVICE: 02/01/2017 ELECTROENCEPHALOGRAPHIC EXAMINATION REPORT: INDICATION FOR EXAMINATION: This patient is a 66-year-old male being evaluated for episode of acute aphasia and TIA. The patient has evidence of severe right ICA stenosis over 90%. AGE: 66. EEG FINDINGS: A routine 21 channel awake digital EEG recording was accomplished utilizing the 10-20 international system with bipolar and referential montages. The background activity in the most alert resting state consists of a low to medium amplitude, fairly well developed and well sustained 6 Hertz activity over the posterior head regions. This posterior rhythm attenuates to eye opening. There is a small amount of low amplitude 18-20 Hertz beta activity seen maximally over the anterior head regions. Muscle and movement artifact was observed on a few occasions during the tracing. Hyperventilation was not performed. Photic stimulation at flash frequencies of 2-30 Hertz produced a minimal occipital driving response. No epileptiform discharges were seen. IMPRESSION: This EEG is moderately abnormal in a diffuse fashion due to slowing of the EEG background. The EEG failed to reveal any focal, lateralized, or epileptiform abnormalities. Clinical correlation is recommended. MMODL / IJN: [id number] /
[2017-02-02] MEDS ORDERED: ENOXAPARIN 40 MG/0.4 ML SYRINGE SQ SCH (09:00)
[2017-02-02] MEDS ORDERED: ATORVASTATIN 40 MG TAB PO SCH (09:00)
[2017-02-02] MEDS ORDERED: VERAPAMIL SR 240 MG TABLET.ER PO SCH (09:00)
[2017-02-02] MEDS ORDERED: ASPIRIN 325 MG TAB PO SCH (13:00)
== END 2017-02-02 06:27 | disposition short-term general hospital (02) | DRG 65 ==
LOC: EC 11:10 → 6SEL 13:00 → 6ICU 19:10
PROVIDERS: ADMIT Hospitalist; ATTEND Hospitalist
DX: I63.9 Cerebral infarction, unspecified (principal); I69.354 Hemiplegia and hemiparesis following cerebral infarction affecting left non-dominant side; G93.89 Other specified disorders of brain; R47.01 Aphasia; R29.709 NIHSS score 9; I65.21 Occlusion and stenosis of right carotid artery; I65.01 Occlusion and stenosis of right vertebral artery; I10 Essential (primary) hypertension; E11.9 Type 2 diabetes mellitus without complications; I25.10 Atherosclerotic heart disease of native coronary artery without angina pectoris; I25.2 Old myocardial infarction; E78.5 Hyperlipidemia, unspecified; M10.9 Gout, unspecified; N40.0 Benign prostatic hyperplasia without lower urinary tract symptoms; Z79.84 Long term (current) use of oral hypoglycemic drugs; Z79.1 Long term (current) use of non-steroidal anti-inflammatories (NSAID); Z79.02 Long term (current) use of antithrombotics/antiplatelets; Z79.899 Other long term (current) drug therapy; Z86.010 Personal history of colon polyps; Z87.891 Personal history of nicotine dependence; Z96.1 Presence of intraocular lens; Z98.41 Cataract extraction status, right eye; Z98.42 Cataract extraction status, left eye; Z87.898 Personal history of other specified conditions; Z82.0 Family history of epilepsy and other diseases of the nervous system
CPT/HCPCS: 36415; 70450; 70496; 70498; 70551; 71020; 80053; 80061; 82550; 82553; 83036; 84484; 85025; 85610; 85730; 93005; 93880; 94760; 95819; 96360; 96361; 99285